=== PATIENT | female | born 1935 | race Caucasian/White ===

== ENCOUNTER 2017-01-04 10:00 | Emergency (ER) | payer OTHER ==
[~2017-01-04] VITALS: Ht 165.1 cm; Wt 86.4 kg
[2017-01-04] MEDS ORDERED: IPRATROPIUM BROMIDE 0.5 MG/2.5 ML NEB SOLUTION NEB ONE ×2 (10:15→15:45)
[2017-01-04] MEDS ORDERED: MethylPREDNISolone SOD SUCC 125 MG/2 ML VIAL IVP ONE (10:15)
[2017-01-04] MEDS ORDERED: ALBUTEROL SULFATE 5 MG/ML 20 ML NEB SOLN [BULK] NEB ONE ×2 (10:15→15:45)
[2017-01-04] MEDS ORDERED: ACYC200C PO (10:20)
[2017-01-04] MEDS ORDERED: ALBU8.5H IH (10:20)
[2017-01-04] MEDS ORDERED: FERR134T2 PO (10:20)
[2017-01-04] MEDS ORDERED: BUME1TAB30 PO (10:20)
[2017-01-04] MEDS ORDERED: NPH,100V SQ (10:20)
[2017-01-04] MEDS ORDERED: TIOT185 IH (10:20)
[2017-01-04] MEDS ORDERED: MEDR4 PO (10:20)
[2017-01-04] MEDS ORDERED: INSREG SQ (10:20)
[2017-01-04] MEDS ORDERED: ATOR40TA28 PO (10:20)
[2017-01-04] MEDS ORDERED: DILT240C93 PO (10:20)
[2017-01-04] MEDS ORDERED: DIGO125T PO (10:20)
[2017-01-04] MEDS ORDERED: OMEP20 PO (10:20)
[2017-01-04] MEDS ORDERED: ASPI81 PO (10:20)
[2017-01-04] MEDS ORDERED: POTA99TA15 PO (10:20)
[2017-01-04] MEDS ORDERED: METO50 PO (10:20)
[2017-01-04] MEDS ORDERED: AZAT50TA35 PO (10:20)
[2017-01-04 10:37] LABS: BASOPHILS # (AUTO) 0.01 K/uL (0.00-0.20); BASOPHILS % (AUTO) 0.1 % (0.0-2.0); EOSINOPHILS # (AUTO) 0.01 K/uL (0.00-0.70); EOSINOPHILS % (AUTO) 0.06 % (1.0-6.0); HEMATOCRIT 37.9 % (36-46); HEMOGLOBIN 12.3 g/dL (12.0-16.0); LYMPHOCYTES # (AUTO) 0.5 K/uL (1.0-4.8); LYMPHOCYTES % (AUTO) 4.5 % (22.0-44.0); MEAN CORPUSCULAR HEMOGLOBIN 32.1 pg (26.0-34.0); MEAN CORPUSCULAR HGB CONC 32.4 G/dL (31.0-37.0); MEAN CORPUSCULAR VOLUME 99 fL (80-100); MONOCYTES # (AUTO) 0.4 K/uL (0.1-1.0); MONOCYTES % (AUTO) 4.1 % (2.0-9.0); NEUTROPHILS # (AUTO) 9.2 K/uL (1.8-7.7); PLATELET COUNT (AUTO) 177 K/uL (150-450); RED BLOOD CELL COUNT(AUTO) 3.82 MIL/uL (4.00-5.20); RED CELL DISTRIBUTION WIDTH 15.4 % (11.5-14.5); WHITE BLOOD COUNT (AUTO) 10.1 K/uL (4.5-11.0)
[2017-01-04 10:41] LABS: NEUTROPHILS % (AUTO) 91.3 % (40.0-70.0)
[2017-01-04 10:52] LABS: ANION GAP 10 mmol/L (8-16); CALCIUM, TOTAL 8.6 mg/dL (8.8-10.5); CARBON DIOXIDE 30 mmol/L (22-29); CHLORIDE 99 mmol/L (98-107); CREATININE 1.91 mg/dL (0.60-1.30); GLOMERULAR FILTR. RATE CALC 25 mL/min (>60); POTASSIUM 4.1 mmol/L (3.5-5.1); SODIUM SERUM 139 mmol/L (136-145); UREA NITROGEN, BLOOD 31 mg/dL (7-18)
[2017-01-04 10:53] LABS: ABG A-A DIFF O2 429.8 mmHg (10-20.0); ABG BASE EXCESS 2.6 mmol/L (-2.0-3.0); ABG OXYHEMOGLOBIN 98.7 % (94.0-100.0); ABG PCO2 36 mmHg (35-45); ABG PH 7.482 (7.35-7.450); TEMPERATURE, FAHRENHEIT, BG 98.2 FAHREN (96.0-98.6)
[2017-01-04 10:54] LABS: IPAP, BG 16 cm H2O
[2017-01-04] MEDS ORDERED: 0.9% SODIUM CHLORIDE 15 ML NEB SOLUTION NEB ONE ×2 (10:59→15:53)
[2017-01-04 11:01] LABS: PROTHROMBIN TIME 10.8 SEC (9.4-11.6)
[2017-01-04 11:17] LABS: ALANINE AMINOTRANSFERASE 27 U/L (12-78); ALBUMIN 2.9 g/dL (3.4-5.0); ASPARTATE AMINOTRANSFERASE 30 U/L (15-37); CREATINE KINASE MB 1.8 ng/mL (0-5); CREATINE KINASE, TOTAL 150 U/L (26-192); TOTAL PROTEIN, SERUM 7.2 g/dL (6.4-8.2)
[2017-01-04 11:26] LABS: LACTIC ACID 2.4 mmol/L (0.4-2.0)
[2017-01-04 11:27] LABS: B-TYPE NATRIURETIC PEPTIDE 881 pg/mL (0-100)
[2017-01-04 11:32] LABS: DIGOXIN 0.65 ng/mL (0.90-2.00)
[2017-01-04 12:33] LABS: REFLEX LACTIC ACID? YES YES
[2017-01-04] MEDS ORDERED: KDUR10 PO (13:58)
[2017-01-04] MEDS ORDERED: FERR-89 PO (13:58)
[2017-01-04] MEDS ORDERED: FUROSEMIDE 40 MG/4 ML VIAL IVP ONE (14:00)
[2017-01-04] MEDS ORDERED: LEVOFLOXACIN 750 MG/D5% WATER 150 ML IV ONE (14:00)
[2017-01-04 14:22] LABS: APPEARANCE,URINE CLOUDY (CLEAR); GLUCOSE, URINE (UA) NEGATIVE (NEGATIVE); KETONES,URINE TRACE mg/dL (NEGATIVE); LEUKOCYTE ESTERASE ,URINE NEGATIVE (NEGATIVE); OCCULT BLOOD,URINE TRACE (NEGATIVE); PH,URINE 5.5 (5.0-8.0); PROTEIN,URINE SEE CONFIRM (NEGATIVE)
[2017-01-04 14:28] LABS: ADD UA MICROSCOPIC YES
[2017-01-04 14:30] LABS: SULFOSALICYLIC ACID,URINE 3+ (Negative)
[2017-01-04 14:33] LABS: RBC,URINE 0-2 /HPF (0-2); TRANSITIONAL EPI CELLS,URINE Rare /LPF (None Seen); WBC,URINE 0-2 /HPF (0-5)
[2017-01-04 14:34] LABS: AMORPHOUS SEDIMENT,UR Few /LPF (None Seen)
[2017-01-04 14:36] LABS: COARSE GRANULAR CASTS,URINE 0-2 /LPF (None Seen)
[2017-01-04] MEDS ORDERED: ACETAMINOPHEN 500 MG TABLET PO ONE (15:15)
[2017-01-04 17:54] VITALS: BP 101/65
== END 2017-01-04 18:36 | disposition short-term general hospital (02) ==
LOC: EMS 10:04 → EDBD 10:04 → EMS 18:36
DX: J18.9 Pneumonia, unspecified organism (principal); I11.0 Hypertensive heart disease with heart failure; I50.9 Heart failure, unspecified; I48.91 Unspecified atrial fibrillation; J44.9 Chronic obstructive pulmonary disease, unspecified; E11.9 Type 2 diabetes mellitus without complications; Z79.82 Long term (current) use of aspirin; Z79.4 Long term (current) use of insulin
CPT/HCPCS: 36415; 71010; 80053; 80162; 81001; 82550; 82553; 82805; 83605; 83880; 84484; 85025; 85610; 85730; 87040; 93005; 94644; 94645; 94660; 96365; 96375; 99291; J1940; J1956; J2930

== ENCOUNTER 2017-04-01 10:22 | Emergency (ER) | payer OTHER ==
[~2017-04-01] VITALS: Ht 160 cm; Wt 75.0 kg
[~2017-04-01 10:22] MED LIST: ACYC200C PO; ALBU8.5H IH; ASPI81 PO; ATOR40TA28 PO; AZAT50TA35 PO; BUME1TAB30 PO; DIGO125T PO; DILT240C93 PO; FERR-89 PO; INSREG SQ; KDUR10 PO; MEDR4 PO; METO50 PO; NPH,100V SQ; OMEP20 PO; TIOT185 IH
[2017-04-01 10:39] LABS: ALBUMIN 3.1 g/dL (3.4-5.0); BILIRUBIN,TOTAL 0.3 mg/dL (0.1-1.0); CALCIUM, TOTAL 9.4 mg/dL (8.8-10.5); CREATININE 1.95 mg/dL (0.60-1.30); LACTIC ACID 1.6 mmol/L (0.4-2.0); POTASSIUM 3.6 mmol/L (3.5-5.1); TOTAL PROTEIN, SERUM 7.4 g/dL (6.4-8.2)
[2017-04-01 10:51] LABS: ADD UA MICROSCOPIC NO; APPEARANCE,URINE CLEAR (CLEAR); GLUCOSE, URINE (UA) NEGATIVE (NEGATIVE); KETONES,URINE NEGATIVE (NEGATIVE); LEUKOCYTE ESTERASE ,URINE NEGATIVE (NEGATIVE); OCCULT BLOOD,URINE NEGATIVE (NEGATIVE); PH,URINE 5.5 (5.0-8.0); PROTEIN,URINE NEGATIVE (NEGATIVE)
[2017-04-01 10:53] LABS: HEMATOCRIT 34.4 % (36-46); HEMOGLOBIN 11.1 g/dL (12.0-16.0); MEAN CORPUSCULAR HEMOGLOBIN 31.2 pg (26.0-34.0); MEAN CORPUSCULAR HGB CONC 32.1 G/dL (31.0-37.0); MEAN CORPUSCULAR VOLUME 97 fL (80-100); PLATELET COUNT (AUTO) 340 K/uL (150-450); RED BLOOD CELL COUNT(AUTO) 3.55 MIL/uL (4.00-5.20); RED CELL DISTRIBUTION WIDTH 15.7 % (11.5-14.5); WHITE BLOOD COUNT (AUTO) 19.3 K/uL (4.5-11.0)
[2017-04-01 11:08] LABS: EOSINOPHILS # (AUTO) 0.24 K/uL (0.00-0.70); EOSINOPHILS % (AUTO) 1.23 % (1.0-6.0); LYMPHOCYTES # (AUTO) 0.6 K/uL (1.0-4.8); MONOCYTES # (AUTO) 0.1 K/uL (0.1-1.0); MONOCYTES % (AUTO) 0.7 % (2.0-9.0); NEUTROPHILS # (AUTO) 18.4 K/uL (1.8-7.7)
[2017-04-01 12:49] LABS: DIGOXIN 0.74 ng/mL (0.90-2.00)
[2017-04-01 13:45] VITALS: BP 116/54
[2017-04-01 13:53] LABS: ABG BASE EXCESS 4.4 mmol/L (-2.0-3.0); ABG HCO3 28.1 mmol/L (22.0-26.0); ABG OXYHEMOGLOBIN 95.9 % (94.0-100.0); ABG PCO2 41 mmHg (35-45); ABG PH 7.459 (7.35-7.450); ALLEN TEST, BLOOD GAS Positive; IPAP, BG 14 cm H2O; TEMPERATURE, FAHRENHEIT, BG 97.9 FAHREN (96.0-98.6)
== END 2017-04-01 14:18 | disposition short-term general hospital (02) ==
LOC: EMS 10:22
DX: J96.90 Respiratory failure, unspecified, unspecified whether with hypoxia or hypercapnia (principal); I11.0 Hypertensive heart disease with heart failure; I50.9 Heart failure, unspecified; J44.9 Chronic obstructive pulmonary disease, unspecified; I48.91 Unspecified atrial fibrillation; E11.9 Type 2 diabetes mellitus without complications; E78.00 Pure hypercholesterolemia, unspecified; Z79.4 Long term (current) use of insulin; Z79.82 Long term (current) use of aspirin
CPT/HCPCS: 82805; 83605; 87040; 94660; 99291